=== PATIENT | female | born 1975 | race Caucasian/White ===

== ENCOUNTER 2018-02-18 12:49 | Emergency (ER) | payer SELFPAY ==
[2018-02-18] MEDS ORDERED: LIDOCAINE 1%/EPINEPHRINE INJ 20 ML VIAL INJ ONE (14:16)
[2018-02-18] MEDS ORDERED: DIPH/PERTUSS(ACELL)/TETANUS VAC/PF 0.5 ML SYR (>=10YO) IM ONE (14:16)
--- NOTE | 2018-02-18 15:01 | RADIOLOGY REPORT (SQ) ---
EXAM DESCRIPTION: HUMERUS LEFT COMPLETED DATE/TIME: 02/18/2018 2:53 pm REASON FOR STUDY: puncture wound COMPARISON: None. NUMBER OF VIEWS: Two views. TECHNIQUE: Two radiographic images were acquired of the left humerus to include elbow and shoulder i n at least one projection. LIMITATIONS: None. FINDINGS: MINERALIZATION: Normal. BONES: No acute fracture or dislocation. No worrisome bone lesions. SOFT TISSUES: There is subcutaneous air. No radiopaque foreign bodies. OTHER: No other significant finding. IMPRESSION: Subcutaneous air. No acute fracture or dislocation. No foreign bodies. TECHNICAL DOCUMENTATION: JOB ID: [id number] [employer]- All Rights Reserved Reading location - IP[facility]workstation name: [facility]
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
[2018-02-18 16:26] VITALS: BP 138/81
== END 2018-02-18 16:28 | disposition home or self-care (01) ==
LOC: ER 12:49
DX: S41.112A Laceration without foreign body of left upper arm, initial encounter (principal); W22.8XXA Striking against or struck by other objects, initial encounter; Y93.89 Activity, other specified; Z87.891 Personal history of nicotine dependence
CPT/HCPCS: 99283; 73060; J3490; 90715